=== PATIENT | male | born 1965 | race African-American/Black ===

== ENCOUNTER 2017-05-02 17:39 | Inpatient (IN) ==
--- NOTE | 2017-05-02 17:46 | Emergency Department Note ---
Disposition Clinical Impression: TIA (transient ischemic attack) Qualifiers: Transient cerebral ischemia type: unspecified Qualified Code(s): G45.9 - Transient cerebral ischemic attack, unspecified Hypertension Qualifiers: Hypertension type: essential hypertension Qualified Code(s): I10 - Essential ( primary) hypertension Disposition: Admitted As Inpatient Condition: Fair Referrals: NONE,PCP [Primary Care Provider] - Forms: ED Satisfaction Letter Time of Disposition: 18:31 Neuro HPI - General Chief Complaint: ED Neuro Symptoms/Deficit Stated Complaint: neuro Time Seen by Provider: 05/02/17 17:42 Source: patient, EMS Mode of arrival: EMS Limitations: no limitations Nursing Notes Reviewed: Yes Vital Signs Reviewed: Yes - History of Present Illness HPI Narrative: 52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 Patient also complains of some numbness and tingling in his right arm. He had some some numbness right arm. He had some daisy-oral numbness. Onset of Symptoms Date: 05/02/17 Onset of Symptoms Time: 15:15 Timing confirmed by: caregiver Location: left face, right arm, right leg Severity: mild, moderate Quality: weakness, numbness Improves with: none Worsens with: none Context: sudden onset On Anticoagulants: No Treatments Prior to Arrival: none - Related Data Allergies/Adverse Reactions: Allergies Allergy/AdvReac Type Severity Reaction Status Date / Time No Known Allergies Allergy Verified 05/02/17 17:44 All systems ED: reviewed and negative except as stated. Constitutional: Denies: fever, chills, weakness, weight change Eyes: Denies: eye pain, eye discharge, vision change ENT ED: Denies: ear pain, throat pain, dental pain, hearing loss, epistaxis, congestion, dysphagia Cardiovascular: Denies: chest pain, palpitations, dyspnea on exertion, edema, syncope Respiratory: Denies: cough, dyspnea, wheezes, hemoptysis, stridor Gastrointestinal: Denies: abdominal pain, nausea, vomiting, diarrhea, constipation, hematemesis, melena, hematochezia Genitourinary: Denies: urgency, dysuria, frequency, hematuria Musculoskeletal: Denies: back pain, neck pain, arthralgia, myalgia Integumentary: Denies: rash, abrasion, lesions Neurological: Reports: weakness (Right arm right leg), numbness (Right arm). Denies: headache, paresthesias, confusion, abnormal gait, vertigo Psychiatric: Denies: anxiety, depression, suicidal thoughts, homicidal thoughts , auditory hallucinations, visual hallucinations Endocrine: Denies: fatigue Hematological/Lymphatic: Denies: easy bleeding, easy bruising Allergic/Immunologic: Denies: facial swelling, urticaria Physical Exam - General Limitations: no limitations General appearance: alert, in no apparent distress - Head Head exam: atraumatic, normocephalic, normal inspection - Eye Eye exam: Present: normal appearance, PERRL, EOMI - ENT ENT exam: normal exam, normal oropharynx, mucous membranes moist - Neck Neck exam: Present: normal inspection, full ROM, trachea midline - Chest Chest inspection: Present: normal inspection, symmetric chest wall rise - Respiratory Respiratory exam: Present: normal lung sounds bilaterally - Cardiovascular Cardiovascular exam: Present: regular rate, normal rhythm, normal heart sounds - Abdominal Exam Abdominal exam: Present: soft, Non-Tender. Absent: tenderness, distention, guarding, rebound, rigidity - Extremities Exam Extremities exam: Present: normal inspection, full ROM. Absent: tenderness, pedal edema - Expanded Lower Extremity Exam Neurovascular/Tendon exam: Present: motor deficit (Some drift in the right arm and right leg). Absent: sensory deficit, tendon deficit Gait: not tested/not observed - Back Exam Back exam: Present: normal inspection, full ROM. Absent: tenderness - Neurological Exam Neurological exam: Present: alert, oriented X3 - Psychiatric Psychiatric exam: Present: normal affect, normal mood - Skin Skin exam: Present: warm, dry, intact, normal color Course - Reevaluation(s) Reevaluation #1: The patient's symptoms have actually improved he has decreased ataxia of the right leg is strength seems to be better and he now has no drift of the right arm. Time: 18:29 Reevaluation #2: Patient with weakness that has seems to have improved significantly a stroke alert was called patient was evaluated by [facility] at initial evaluation his NIH stroke score was 4 which improved to 0 when evaluated by [facility]. Patient will be admitted for evaluation of TIA. Time: 18:56 - Consultations Consultation #1: Discussed with , [facility] neurology stroke alert. At this time the patient does not meet criteria for TPA. Her impression is a TIA and the patient will be need to be admitted for evaluation. Time: 18:29 Consultation #2: Discussed with Mili Reeves, admit. Time: 18:57 Vital Signs Temperature 97.9 F 05/02/17 17:41 Pulse Rate 69 05/02/17 17:41 Respiratory Rate 18 05/02/17 17:41 Blood Pressure 137/110 05/02/17 17:41 O2 Sat by Pulse Oximetry 100 05/02/17 17:41 Temperature 97.9 F 05/02/17 17:41 Pulse Rate 81 05/02/17 17:57 Respiratory Rate 18 05/02/17 17:57 Blood Pressure 148/95 05/02/17 17:57 O2 Sat by Pulse Oximetry 100 05/02/17 17:41 Oxygen Delivery Oxygen Delivery Room Air Neuro Symptoms/Deficit - Lab Data Result diagrams: 05/02/17 17:47 05/02/17 17:47 Lab Results 05/02/17 05/02/17 05/02/17 Range/Units 17:47 17:47 17:47 WBC 6.3 (4.3-11.1) K/mcL RBC 6.05 H (4.19-5.50) M/mcL Hgb 16.0 (12.9-16.9) g/dL Hct 48.5 (37.5-50.1) % MCV 80.2 L (83.0-100.0) fL MCH 26.4 L (28.0-33.3) pg MCHC 33.0 (31.6-35.5) g/dL RDW 14.5 (11.5-14.5) % Plt Count 185 (140-400) K/mcL MPV 11.5 (9.4-12.4) fL Immature Gran % 0.3 (0-4) % Seg Neutrophils % 53.5 % Lymphocytes % 32.9 % Monocytes % 11.7 % Eosinophils % 1.1 % Basophils % 0.5 % Neutrophils # 3.4 (1.6-8.9) K/mcL Lymphocytes # 2.1 (0.6-4.6) K/mcL Monocytes # 0.7 (0.0-1.3) K/mcL Eosinophils # 0.1 (0.0-0.6) K/mcL Basophils # 0.0 (0.0-0.2) K/mcL PT 10.8 (9.4-12.1) Seconds INR 1.0 APTT 26.3 (26.0-36.0) Seconds Sodium 138 (136-145) mEq/L Potassium 3.8 (3.5-4.5) mEq/L Chloride 106 (98-109) mEq/L Carbon Dioxide 23 (19-29) mEq/L BUN 13 (8-26) mg/dL Creatinine 1.10 (0.72-1.25) mg/dL Est GFR ( Amer) > 60 (> 60) Est GFR (Non-Af Amer) > 60 (> 60) BUN/Creatinine Ratio 12 (6-26) Glucose 113 H (70-99) mg/dL Calculated Osmolality 287 (280-300) Calcium 9.4 (8.6-10.8) mg/dL Troponin I (0-0.03) ng/mL 05/02/17 Range/Units 17:47 WBC (4.3-11.1) K/mcL RBC (4.19-5.50) M/mcL Hgb (12.9-16.9) g/dL Hct (37.5-50.1) % MCV (83.0-100.0) fL MCH (28.0-33.3) pg MCHC (31.6-35.5) g/dL RDW (11.5-14.5) % Plt Count (140-400) K/mcL MPV (9.4-12.4) fL Immature Gran % (0-4) % Seg Neutrophils % % Lymphocytes % % Monocytes % % Eosinophils % % Basophils % % Neutrophils # (1.6-8.9) K/mcL Lymphocytes # (0.6-4.6) K/mcL Monocytes # (0.0-1.3) K/mcL Eosinophils # (0.0-0.6) K/mcL Basophils # (0.0-0.2) K/mcL PT (9.4-12.1) Seconds INR APTT (26.0-36.0) Seconds Sodium (136-145) mEq/L Potassium (3.5-4.5) mEq/L Chloride (98-109) mEq/L Carbon Dioxide (19-29) mEq/L BUN (8-26) mg/dL Creatinine (0.72-1.25) mg/dL Est GFR ( Amer) (> 60) Est GFR (Non-Af Amer) (> 60) BUN/Creatinine Ratio (6-26) Glucose (70-99) mg/dL Calculated Osmolality (280-300) Calcium (8.6-10.8) mg/dL Troponin I 0.00 (0-0.03) ng/mL - EKG Data EKG attestation: Yes I reviewed and interpreted this EKG. EKG shows normal: sinus rhythm Rate: normal Rhythm: NSR Interpretation: no acute changes NIH Stroke Scale - Level of Consciousness LOC: Alert - LOC Questions LOC Questions: Answers both correctly - LOC Commands LOC Commands: Performs both correctly - Best Gaze Best Gaze: Normal - Visual Visual: No visual loss - Facial Palsy Facial Palsy: Normal - Motor Arms Motor Arm-Left: No drift for 10 seconds Motor Arm-Right: Drift, does NOT hit bed - Motor Legs Motor Leg-Left: No drift for 5 seconds Motor Leg-Right: Drift, does NOT hit bed - Limb Ataxia Limb Ataxia: Present in ONE limb - Sensory Sensory: Mild to moderate loss, "not as sharp" - Best Language Best Language: No aphasia - Dysarthria Dysarthria: Normal - Extinction and Inattention Extinction and Inattention: Normal - NIHSS Total Score NIHSS Total Score: 4 TPA Checklist - Eligibilty for IV tPA 1. LKW equal to or less than 4.5 hours be before treatment: Yes 2. Clinical diagnosis of ischemic stroke causing deficit: No 3. Age 18 years or older: Yes - LKW: 3-4.5 hrs Add. Warnings/Precautions Patient/family understanding: The patient/family members have been counseled and understood the risk, benefit , and alternatives of treatment. Critical Care Time Critical Care Time: Yes Total Critical Care Time: 30 Attestation: The high probability of a clinically significant, sudden or life threatening deterioration of the [neurological] system(s) required my full and direct attention, intervention and personal management. The aggregate critical care time was [30] minutes. This time is in addition to time spent performing reported procedures but includes the following: [x] Data Review and interpretation [x] Patient assessment and monitoring of vital signs [x] Documentation [x] Medication orders and management
[2017-05-02 17:55] LABS: Basophils % 0.5 %; Eosinophils # 0.1 K/mcL (0.0-0.6); Eosinophils % 1.1 %; Hematocrit 48.5 % (37.5-50.1); Immature Granulocytes % 0.3 % (0-4); Lymphocytes # 2.1 K/mcL (0.6-4.6); Lymphocytes % 32.9 %; Mean Corpuscular Hemoglobin 26.4 pg (28.0-33.3); Mean Corpuscular Volume 80.2 fL (83.0-100.0); Mean Platelet Volume 11.5 fL (9.4-12.4); Monocytes # 0.7 K/mcL (0.0-1.3); Monocytes % 11.7 %; Neutrophils # 3.4 K/mcL (1.6-8.9); Platelet Count 185 K/mcL (140-400); Red Blood Count 6.05 M/mcL (4.19-5.50); Red Cell Distribution Width 14.5 % (11.5-14.5); Segmented Neutrophils % 53.5 %
[2017-05-02 18:02] LABS: Prothrombin Time 10.8 Seconds (9.4-12.1)
[2017-05-02 18:04] LABS: Activated Partial Thrombo Time 26.3 Seconds (26.0-36.0)
[2017-05-02 18:13] LABS: BUN/Creatinine Ratio 12 (6-26); Blood Urea Nitrogen 13 mg/dL (8-26); Calcium 9.4 mg/dL (8.6-10.8); Carbon Dioxide 23 mEq/L (19-29); Chloride 106 mEq/L (98-109); Glucose 113 mg/dL (70-99); Osmolality,Calculated 287 (280-300); Potassium 3.8 mEq/L (3.5-4.5); Sodium 138 mEq/L (136-145); eGFR For African Americans > 60 (> 60); eGFR For Non-African Americans > 60 (> 60)
[2017-05-02] MEDS ORDERED: Naloxone 0.4 MG/ML INJ IVP PRN (22:03)
--- NOTE | 2017-05-02 22:29 | Internal Med History&Physical ---
Date of Encounter: 05/02/17 Time of Encounter: 22:18 Assessment and Plan (1) TIA (transient ischemic attack) Current visit: Yes Status: Acute observe overnight for evolution. Neurochecks, MRI brain, US carotid doppler, TTE ordered to r/o CVA Qualifiers: Transient cerebral ischemia type: unspecified Qualified Code(s): G45.9 - Transient cerebral ischemic attack, unspecified (2) Hypertension Current visit: Yes Status: Acute probably mild un diagnosed HTN. To monitor closely for now. No medication indicated given TIA w/u Qualifiers: Hypertension type: unspecified Qualified Code(s): I10 - Essential (primary ) hypertension Internal Medicine - H&P: HPI Chief complaint: B/l UE and LE weakness , paresthesia History of present illness: Mr. Falcon is a 52 year old male with no PMH , on no medications who presents with acute B/l UE and LE weakness , paresthesia. 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 He subsequently developed b/l LE and UE weakness, could not balance or walk along with paresthesia of b/l arms and legs distribution and numbness of both sides of lips. He said he had a plum and thought he had a reaction to the plum ? He reports that his symptoms are worse on his right side than compared to left. Past Med Surg Social Fam HX - Past Medical History Medical history: hyperlipidemia Psychiatric history: no psych history - Social History Smoking Status: Never smoker Smokeless Tobacco Status: No Alcohol use: none Drug use: unknown Internal Medicine - H&P: Meds RX: No Known Home Drugs 05/02/17 [History] Allergies No Known Allergies Allergy (Verified 05/02/17 17:44) All Systems PM: A 10-system review of systems was performed and is negative for pertinent findings except as documented above in the HPI. Review of systems: ROS 14 point review of systems reviewed as best as possible given presentation. Pertinent positive or negative as per HPI or otherwise reviewed as negative - Constitutional Vitals: Temp Pulse Resp BP Pulse Ox 98.1 F 61 16 141/92 95 05/02/17 20:59 05/02/17 20:59 05/02/17 20:59 05/02/17 20:59 05/02/17 20:59 Exam: General - AAO x 3 Psych - Appropriate affect/speech. No agitation Eyes - CECELIA. Eye lids intact. No scleral icterus ENT - Oral mucosa pink, dentition intact. External ear clear/dry/intact. No thyromegaly Lymphatics - No cervical/inguinal lympadenopathy Neuro - No central neuro deficits with intact CN 2-12 exam. B/l UE and LE paresthesia. Power 5/5 UE and LE Heart - Sinus. RRR. S1 and S2 present. No added HS/murmurs appreciated. No elevated JVD appreciated. No calf swellings/erythema Lung - Adequate air entry b/l, No crackes/wheezes appreciated GI - Soft, non-tender. No hepatosplenomegaly/ascities. BS+ - No CVA/suprapubic tenderness or palpable bladder distension Skin - Intact. No rash/petechiae/ecchymosis. Warm extremities MSK - Joints with normal ROM. No joint swellings Internal Med - H&P Results - Labs CBC & Chem 7: 05/02/17 17:47 05/02/17 17:47
[2017-05-02] MEDS: 0.9 % Sodium Chloride 1,000 ML IVC SCH (23:15)
[2017-05-03] MEDS: 0.9 % Sodium Chloride 1,000 ML IVC SCH (09:19)
--- NOTE | 2017-05-03 19:58 | Internal Med Progress Note ---
Date of Encounter: 05/03/17 Time of Encounter: 18:30 - Assessment and plan (1) Paresthesias with subjective weakness Current Visit: Yes Status: Acute Assessment and plan: Unclear causation at this time. 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 He continues to endorse subjective weakness in both hands and both legs. Objectively however there are no focal neurological weakness is present on examination. Patient stating he continues to have numbness and tingling in his arms and his legs. Again, unsure causation. Echocardiogram unremarkable with ejection fraction of 60-65%. Carotid and MRI both still pending. Head CT negative. Chest x-ray negative. Patient stating he started working out approximately 2 weeks ago and states that he is taking a lot of supplements including vitamin D, B12. We will check his vitamins for any deficiencies. Awaiting MRI to rule out CVA. Patient stating he has had intermittent numbness and tingling in both arms for the past 3-4 months and he states that he started when he started his new job. He states he has a strong family history of diabetes, we will check an A1c. Will also check thyroid studies. We will bring neurology on board due to his continued symptoms. OT and PT consultations have been placed as well. Diagnosis of exclusion would include anxiety, on examination, the patient is very anxious and restless. Awaiting lab and imaging results. ITS Impressions Head CT 05/02/17 17:42 IMPRESSION: No acute intracranial abnormality. Critical test results were called by Dr. Leo Drew MD to emergency room nurse Bill Allen on 05/02/2017 at 18:04. Dr. Hernandez was unavailable at the time due to a tele-medicine consultation with [facility] neurology. D/ /02/2017 18:12:31 Leo Drew MD / sylvia Interpreting Provider: Leo Drew MD Chest X-Ray 05/02/17 17:43 IMPRESSION: No acute process. D/ / Janis Cruz MD / Janis Cruz MD Interpreting Provider: Janis Cruz MD Echo with Saline Contrast Impressions: LVEF 60-65%. Normal LV chamber size, wall thickness and function. Normal left ventricular diastolic function. Mildly dilated right ventricle with normal function. No evidence of PFO with agitated saline contrast. Mild tricuspid regurgitation. Mild pulmonic regurgitation. No pulmonary hypertension. (2) TIA (transient ischemic attack) Current Visit: Yes Status: Acute Qualifiers: Transient cerebral ischemia type: unspecified Qualified Code(s): G45.9 - Transient cerebral ischemic attack, unspecified (3) Hypertension Current Visit: Yes Status: Chronic Assessment and plan: Normotensive at this time without the use of antihypertensive medications, will trend. Qualifiers: Hypertension type: unspecified Qualified Code(s): I10 - Essential (primary ) hypertension - Subjective Interval history: Patient seen and examined. On examination, basically sitting upright in bed eating his dinner. Patient stating he dropped his fork stating that he was unable to hold it with his right hand. Patient is concerned because he continues to have numbness and tingling in both hands and in both legs. He is also reporting subjective weakness to all 4 extremities. - Constitutional Vitals: Temp Pulse Resp BP Pulse Ox 98.0 F 59 16 130/82 97 05/03/17 18:50 05/03/17 18:50 05/03/17 18:50 05/03/17 18:50 05/03/17 18:50 General appearance: Present: A&O X 3, pleasant, no acute distress, answers questions appropriately - Head Head exam: Present: atraumatic, normocephalic - Eye Eye exam: Present: PERRL, conjuntiva pink, sclera anicteric Pupils: Present: PERRL - Neck Neck exam general surgery: Present: supple, trachea midline. Absent: lymphadenopathy - Respiratory Respiratory exam: Present: CTAB. Absent: accessory muscle use, rales, respiratory distress, rhonchi, wheezes - Cardiovascular Cardiovascular exam: Present: RRR, +S1, +S2. Absent: diastolic murmur, gallop, rubs, systolic murmur - GI/Abdominal GI/Abdominal exam: Present: normal bowel sounds, soft, no peritoneal signs. Absent: distended, tenderness - Extremities Exam Extremities exam: Present: warm, radial pulses palpable and symmetrical. Absent : calf tenderness, cyanotic, pedal edema - Neurological Exam Neurological exam: Present: alert, CN II-XII intact, oriented X3, no focal deficits, strengths equal and symetr throughout. Absent: pronater drift, facial droop, speech deficit - Expanded Neurological Exam Neurological exam expanded: Present: protecting the airway Patient oriented to: Present: person, place, time Speech: Present: fluid speech Cranial Nerves: EOM's intact PM: Normal, gag reflex PM: Normal Cerebellar function: finger to nose: Normal Neuro motor strength exam: LUE: 5, RUE: 5, LLE: 4, RLE: 4 Coma Scale Eye Opening: Spontaneous Coma Scale Motor Response: Obeys Commands Coma Scale Verbal Response: Oriented Coma Scale Total: 15 - Psychiatric Psychiatric exam: Present: anxious - Expanded Psychiatric Exam Focused psych exam: Present: pressured speech, psychomotor agitation, restlessness - Skin Skin exam: Present: dry, intact, normal color, warm Internal Medicine: Result - Labs CBC & Chem 7: 05/02/17 17:47 05/02/17 17:47 - ABG Interpretation ABG results: PT/INR, D-dimer PT 10.8 Seconds (9.4-12.1) 05/02/17 17:47 Consult Discharge Plan - Plan Referrals: NONE,PCP [Primary Care Provider] -
--- NOTE | 2017-05-03 20:21 | Electrocardiograph Report ---
[place] [id number] Test Date: 2017-05-02 Pat Name: Jean Claude Falcon Department: 102 Room: 3B Gender: M Division Director: [place] : 1965 Requested By: Shira Dyer Order Number: [id number] Reading MD: Igor Goldsmith MD Measurements Intervals [place] Rate: 68 P: 41 AK: 157 QRS: 77 QRSD: 102 T: 9 QT: 392 QTc: 409 Interpretive Statements SINUS RHYTHM Electronically Signed On 05-03-2017 20:20:19 EDT by Iogr Goldsmith MD
[2017-05-03 22:32] LABS: Albumin 3.6 g/dL (3.5-5.0); Albumin/Globulin Ratio 1.1 (1.1-2.2); Bilirubin,Direct 0.3 mg/dL (0.0-0.5); Bilirubin,Indirect 0.6 mg/dL (0.0-1.2); Bilirubin,Total 0.9 mg/dL (0.2-1.2); Globulin 3.4 g/dL (2.4-3.5)
[2017-05-03 22:35] LABS: Chol/HDL Ratio 6.1 (0-4.9)
[2017-05-03 22:48] LABS: Hemoglobin A1C 5.9 %
[2017-05-03 22:52] LABS: Thyroid Stimulating Hormone 3.419 mcIU/mL (0.350-4.840)
[2017-05-03 23:10] LABS: Folate 7.6 ng/mL (7.0-31.4)
[2017-05-04] MEDS: Aspirin 81 MG TAB.CHEW PO SCH (13:44)
[2017-05-04] MEDS: amLODIPine 5 MG TABLET PO SCH (13:44)
--- NOTE | 2017-05-04 17:35 | Neurology - Consult Note ---
Date of Encounter: 05/04/17 Time of Encounter: 16:00 Assessment and Plan (1) CVA (cerebral vascular accident) Current Visit: Yes Status: Acute Patient developed lacunar infarct involving the left adams radiata likely secondary to small vessel etiology. no previous history of HTN or other risk factors, except that he is obese. Will keep him on Aspirin daily and statin therapy. Will obtain CT Angio to complete stroke work up. Patient is advised to discuss with PCP after discharge to get sleep study to check for untreated sleep apnea. PT/OT can be beneficial. Qualifiers: CVA mechanism: thrombosis Precerebral and cerebral artery: unspecified cerebral artery Qualified Code(s): I63.30 - Cerebral infarction due to thrombosis of unspecified cerebral artery History of Present Illness Chief complaint: right sided paresthesia and weakness HPI: Mr. 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 This occurred on 05/02/2017 when he was driving his truck. Initial CT of head showed no intracranial abnormality. In the ER he was evaluated by [facility] telemedicine stroke team and determined not to be a tPA candidate due to rapid improvement in his symptoms. At the time of this interview, he still has significant weakness to the right arm and leg and also numbness. MRI of brain confirmed new cerebral infarct at the left adams radiata. this deemed to be typical small vessel lacunar infarct. Patient completed carotid artery duplex study and echocardiography. Patient is started on Aspirin daily and statin therapy Past Med Surg Social Fam HX - Past Medical History Medical history: hyperlipidemia Psychiatric history: no psych history - Past Surgical History Surgical History: no surgical history - Social History Smoking Status: Never smoker Smokeless Tobacco Status: No Alcohol use: none Drug use: unknown - Family History Father Living Status: Age at : 65 Cause of : [place] Hx Family Cardiac Disorders: Yes ([place]) Hx Family Respiratory Disorders: No Hx Family Cancer: No Hx Family GI Disorders: No Hx Family Genitourinary Disorders: No Hx Family Endocrine Disorder: No Hx Family Musculoskeletal Disorders: No Hx Family Neuromuscular Disorders: No Hx Family Neurologic Disorders: No Hx Family HEENT Disorders: No Hx Family Autoimmune Disorders: No Hx Family Reproductive Disorders: No Hx Family Psychosocial Disorders: No Hx Family Medical Disorders: No Mother Living Status: Age at : 62 Cause of : [place] Hx Family Cardiac Disorders: Yes ([place], HTN) Hx Family Respiratory Disorders: No Hx Family Cancer: No Hx Family GI Disorders: No Hx Family Genitourinary Disorders: No Hx Family Endocrine Disorder: Yes (DM) Hx Family Musculoskeletal Disorders: No Hx Family Neuromuscular Disorders: No Hx Family Neurologic Disorders: No Hx Family HEENT Disorders: No Hx Family Autoimmune Disorders: No Hx Family Reproductive Disorders: No Hx Family Psychosocial Disorders: No Hx Family Medical Disorders: No Medications and Allergies No Known Home Drugs 05/02/17 [History] Allergies No Known Allergies Allergy (Verified 05/02/17 17:44) All Systems: A 10-system review of systems was performed and is negative for pertinent findings except as documented above in the HPI. Physical Examination - Vital Signs Vital Signs: Initial Vital Signs Temp Pulse Resp BP Pulse Ox 97.9 F 69 18 137/110 100 05/02/17 17:41 05/02/17 17:41 05/02/17 17:41 05/02/17 17:41 05/02/17 17:41 - Constitutional General appearance: comfortable - Neurologic Sensorimotor examination: other (right hemiparesis noted) Detailed motor examination: other (Right hemiparesis noted. ) Motor examination - right side: 4/5: deltoids, biceps, triceps, wrist flexion, wrist extension, skip tender, hip flexors, tibialis Anterior, quadriceps, toe extension (EHL), plantarflexion Motor examination - left side: 4/5: biceps, triceps, wrist flexion, wrist extension, hip flexors, skip tender, quadriceps, tibialis Anterior, toe extension (EHL) , plantarflexion Detailed sensory examination: other (Right hemiparesthesia noted) Posture: other (None) Reflexes: Biceps: 1+, Triceps: 1+, Brachioradialis: 1+, Patella: 1+, Achilles: 1 + Mental Status Examination: awake, alert, oriented to person, oriented to place, oriented to time, follows commands appropriately, answers questions appropriately, no agnosia, no aphasia, no aproxia Cranial nerve examination: PERRL, EOMI, visual [place] intact, corneal reflexes brisk symmetrically, sensory to face intact, mastication intact, no facial asymmetry is present, no dysarthria, hearing is intact symmetrically, soft palate elevates bilaterally upon phonation, gag reflex intact, flexes SCM and trapezius muscles symmetrically with full power, tongue protrudes midline, no atrophy or facial fasiculations present Results - Laboratory Findings CBC and BMP: 05/02/17 17:47 05/02/17 17:47 Abnormal lab findings: Abnormal lab results RBC 6.05 M/mcL (4.19-5.50) H 05/02/17 17:47 MCV 80.2 fL (83.0-100.0) L 05/02/17 17:47 MCH 26.4 pg (28.0-33.3) L 05/02/17 17:47 ESR 13 mm/hr (0-10) H 05/03/17 22:04 Glucose 113 mg/dL (70-99) H 05/02/17 17:47 Hemoglobin A1c 5.9 % (-5.6) H 05/03/17 22:04 Triglycerides 186 mg/dL (< 150) H 05/03/17 22:04 Cholesterol 226 mg/dL (< 200) H 05/03/17 22:04 LDL Cholesterol, Calc 152 mg/dL (0-99) H 05/03/17 22:04 VLDL Cholesterol, Calc 37 mg/dL (< 31) H 05/03/17 22:04 HDL Cholesterol 37 mg/dL (40-59) L 05/03/17 22:04 Cholesterol/HDL Ratio 6.1 (0-4.9) H 05/03/17 22:04 Consult Discharge Plan - Plan Referrals: NONE,PCP [Primary Care Provider] -
--- NOTE | 2017-05-04 18:03 | Internal Med Progress Note ---
Date of Encounter: 05/04/17 Time of Encounter: 16:15 - Assessment and plan (1) CVA (cerebral vascular accident) Current Visit: Yes Status: Acute Assessment and plan: MRI consistent with acute lacunar infarct within the left mid adams radiata. Patient continues with right-sided weakness with difficulty eating and using his right hand and difficulty ambulating with weakness to his right leg. He has very mild facial drooping on the right side, able to close his eye completely. No speech difficulty or difficulty eating. Patient appears to have undiagnosed hypertension, he has been started on amlodipine. He is also been started on aspirin and a statin. Neurology is on board to have recommended an MRA of the brain as well as an outpatient sleep study to rule out sleep apnea. OT and PT have recommended inpatient rehabilitation. The patient is amenable to this but would like to be at his home state in [place]. Social work is involved and [facility] [place] [facility]. 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 Of note, he has been instructed not to drive until cleared by his PCP. Plan is for inpatient rehabilitation in [place]- social security specialist working on placement. ITS Impressions Head CT 05/02/17 17:42 IMPRESSION: No acute intracranial abnormality. Critical test results were called by Dr. Leo Drew MD to emergency room nurse Bill Allen on 05/02/2017 at 18:04. Dr. Hernandez was unavailable at the time due to a tele-medicine consultation with [facility] neurology. D/ /02/2017 18:12:31 Leo Drew MD / sylvia Interpreting Provider: Leo Drew MD Chest X-Ray 05/02/17 17:43 IMPRESSION: No acute process. D/ / Janis Cruz MD / Janis Cruz MD Interpreting Provider: Janis Cruz MD Brain MRI 05/02/17 22:16 IMPRESSION: Acute lacunar infarct within the left mid adams radiata. The findings were sent to the Radiology Results Communication Center at 9:09 pm on 05/03/2017to be communicated to a licensed caregiver. D/ / Fuentes Perkins MD / Fuentes Perkins MD Interpreting Provider: Fuentes Perkins MD Hand X-Ray 05/03/17 00:00 IMPRESSION: No metallic foreign body in the left hand. D/ / 05/03/2017 21:09:36 Juancarlos Robin MD / pop Interpreting Provider: Juancarlos Robin MD Qualifiers: CVA mechanism: thrombosis Precerebral and cerebral artery: unspecified cerebral artery Qualified Code(s): I63.30 - Cerebral infarction due to thrombosis of unspecified cerebral artery (2) Paresthesias with subjective weakness Current Visit: Yes Status: Acute Assessment and plan: See prior note for acute CVA. Patient was concerned about diabetes as it runs in his family, A1c 5.9%. B12, folate, TSH levels are normal. Still pending are B1, vitamin D levels. Patient stated he started working out 2 weeks ago and stated he started to take a lot of supplementation. 05/03/17 Unclear causation at this time. 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 He continues to endorse subjective weakness in both hands and both legs. Objectively however there are no focal neurological weakness is present on examination. Patient stating he continues to have numbness and tingling in his arms and his legs. Again, unsure causation. Echocardiogram unremarkable with ejection fraction of 60-65%. Carotid and MRI both still pending. Head CT negative. Chest x-ray negative. Patient stating he started working out approximately 2 weeks ago and states that he is taking a lot of supplements including vitamin D, B12. We will check his vitamins for any deficiencies. Awaiting MRI to rule out CVA. Patient stating he has had intermittent numbness and tingling in both arms for the past 3-4 months and he states that he started when he started his new job. He states he has a strong family history of diabetes, we will check an A1c. Will also check thyroid studies. We will bring neurology on board due to his continued symptoms. OT and PT consultations have been placed as well. Diagnosis of exclusion would include anxiety, on examination, the patient is very anxious and restless. Awaiting lab and imaging results. ITS Impressions Head CT 05/02/17 17:42 IMPRESSION: No acute intracranial abnormality. Critical test results were called by Dr. Leo Drew MD to emergency room nurse Bill Allen on 05/02/2017 at 18:04. Dr. Hernandez was unavailable at the time due to a tele-medicine consultation with [facility] neurology. D/ /02/2017 18:12:31 Leo Drew MD / sylvia Interpreting Provider: Leo Drew MD Chest X-Ray 05/02/17 17:43 IMPRESSION: No acute process. D/ / Janis Cruz MD / Janis Cruz MD Interpreting Provider: Janis Cruz MD Echo with Saline Contrast Impressions: LVEF 60-65%. Normal LV chamber size, wall thickness and function. Normal left ventricular diastolic function. Mildly dilated right ventricle with normal function. No evidence of PFO with agitated saline contrast. Mild tricuspid regurgitation. Mild pulmonic regurgitation. No pulmonary hypertension. (3) Hypertension Current Visit: Yes Status: Chronic Assessment and plan: Still having bouts of hypertension. Started on CCB- [employer] with single agent treatment of htn. Will trend. Qualifiers: Hypertension type: unspecified Qualified Code(s): I10 - Essential (primary ) hypertension - Subjective Interval history: Patient seen and examined in concert with Neurology Dr Sandoval. On examination, patient sitting upright in bed watching television. He continues to endorse weakness to his right arm and right leg. He states he still having difficulty holding a spoon in his right hand trying to eat. He denies pain or vision changes. - Constitutional Vitals: Temp Pulse Resp BP Pulse Ox 98.0 F 53 16 139/87 98 05/04/17 16:14 05/04/17 16:14 05/04/17 16:14 05/04/17 16:14 05/04/17 16:14 General appearance: Present: A&O X 3, pleasant, no acute distress, answers questions appropriately - Head Head exam: Present: atraumatic, normocephalic - Eye Eye exam: Present: PERRL, conjuntiva pink, sclera anicteric Pupils: Present: PERRL - Neck Neck exam general surgery: Present: supple, trachea midline. Absent: lymphadenopathy - Respiratory Respiratory exam: Present: CTAB. Absent: accessory muscle use, rales, respiratory distress, rhonchi, wheezes - Cardiovascular Cardiovascular exam: Present: RRR, +S1, +S2. Absent: diastolic murmur, gallop, rubs, systolic murmur - GI/Abdominal GI/Abdominal exam: Present: normal bowel sounds, soft, no peritoneal signs. Absent: distended, tenderness - Extremities Exam Extremities exam: Present: warm, radial pulses palpable and symmetrical. Absent : calf tenderness, cyanotic, pedal edema - Neurological Exam Neurological exam: Present: alert, CN II-XII intact, oriented X3, no focal deficits, pronater drift, facial droop (very mild). Absent: normal gait, strengths equal and symetr throughout, speech deficit - Expanded Neurological Exam Neurological exam expanded: Present: protecting the airway Patient oriented to: Present: person, place, time Speech: Present: fluid speech Cranial Nerves: EOM's intact PM: Normal Neuro motor strength exam: LUE: 5, RUE: 4, LLE: 5, RLE: 4 Coma Scale Eye Opening: Spontaneous Coma Scale Motor Response: Obeys Commands Coma Scale Verbal Response: Oriented Coma Scale Total: 15 - Skin Skin exam: Present: dry, intact, normal color, warm Internal Medicine: Result - Labs CBC & Chem 7: 05/02/17 17:47 05/02/17 17:47 Labs: Liver Function 05/03/17 Range/Units 22:04 Total Bilirubin 0.9 (0.2-1.2) mg/dL Direct Bilirubin 0.3 (0.0-0.5) mg/dL AST 19 (5-34) Units/L ALT 25 (0-55) Units/L Alkaline Phosphatase 80 (38-126) Units/L Albumin 3.6 (3.5-5.0) g/dL - ABG Interpretation ABG results: PT/INR, D-dimer PT 10.8 Seconds (9.4-12.1) 05/02/17 17:47 - Impressions Impressions Brain MRI 05/02/17 22:16 IMPRESSION: Acute lacunar infarct within the left mid adams radiata. The findings were sent to the Radiology Results Communication Center at 9:09 pm on 05/03/2017to be communicated to a licensed caregiver. D/ / Fuentes Perkins MD / Fuentes Perkins MD Interpreting Provider: Fuentes Perkins MD Hand X-Ray 05/03/17 00:00 IMPRESSION: No metallic foreign body in the left hand. D/ / 05/03/2017 21:09:36 Juancarlos Robin MD / pop Interpreting Provider: Juancarlos Robin MD Consult Discharge Plan - Plan Referrals: NONE,PCP [Primary Care Provider] -
[2017-05-04] MEDS: 0.9 % Sodium Chloride 1,000 ML IVC SCH (22:17)
[2017-05-05] MEDS ORDERED: *HR* Enoxaparin 40 MG/0.4 ML SYRINGE SQ SCH (06:00)
[2017-05-05] MEDS: 0.9 % Sodium Chloride 1,000 ML IVC SCH ×2 (06:54→09:01)
[2017-05-05] MEDS: Aspirin 81 MG TAB.CHEW PO SCH (07:48)
[2017-05-05] MEDS: amLODIPine 5 MG TABLET PO SCH (07:48)
[2017-05-05 11:38] VITALS: BP 145/83
--- NOTE | 2017-05-05 12:35 | Carotid Imaging Report ---
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 Recommendations: Test completed on 05/03/2017 at 11:05:00 am. Findings Carotid Duplex: Pathak scale imaging combined with Doppler flow analysis suggests normal findings bilaterally. Right: The right proximal common carotid artery has a PSV of 88 cm/s and a EDV of 24 cm/s. The right mid common carotid artery has a PSV of 77 cm/s and a EDV of 18 cm/s. The right distal common carotid artery has a PSV of 53 cm/s and a EDV of 16 cm/s. The right bifurcation has a PSV of 49 cm/s and a EDV of 15 cm/s. The right proximal internal carotid artery has a PSV of 48 cm/s and a EDV of 18 cm/s. The right mid internal carotid artery has a PSV of 81 cm/s and a EDV of 35 cm/s. The right distal internal carotid artery has a PSV of 56 cm/s and a EDV of 22 cm/s. The right eca has a PSV of 92 cm/s and a EDV of 22 cm/s. The right vertebral artery has a PSV of 42 cm/s and a EDV of 11 cm/s. Left: The left proximal common carotid artery has a PSV of 166 cm/s and a EDV of 15 cm/s. The left mid common carotid artery has a PSV of 72 cm/s and a EDV of 15 cm/s. The left distal common carotid artery has a PSV of 45 cm/s and a EDV of 11 cm/s. The left bifurcation has a PSV of 46 cm/s and a EDV of 14 cm/s. The left proximal internal carotid artery has a PSV of 30 cm/s and a EDV of 9 cm/s. The left mid internal carotid artery has a PSV of 66 cm/s and a EDV of 30 cm/s. The left distal internal carotid artery has a PSV of 65 cm/s and a EDV of 27 cm/s. The left eca has a PSV of 71 cm/s and a EDV of 15 cm/s. The left vertebral artery has a PSV of 46 cm/s and a EDV of 20 cm/s. Prior Study: No prior study available for comparison. Carotid Results Right PSV EDV Assessment Proximal CCA 88 24 Normal Mid CCA 77 18 Normal Distal CCA 53 16 Normal Bifurcation 49 15 Normal Proximal ICA 48 18 Normal Mid ICA 81 35 Normal Distal ICA 56 22 Normal ECA 92 22 Normal Vertebral Artery 42 11 Normal Left PSV EDV Assessment Proximal CCA 166 15 Normal Mid CCA 72 15 Normal Distal CCA 45 11 Normal Bifurcation 46 14 Normal Proximal ICA 30 9 Normal Mid ICA 66 30 Normal Distal ICA 65 27 Normal ECA 71 15 Normal Vertebral Artery 46 20 Normal Ratio's Right ICA/CCA Ratio: 1.05 ICA/CCA Values: 81/77 Left ICA/CCA Ratio: 0.92 ICA/CCA Values: 66/72 Updated by Mark Lee MD, FACS on 05/05/2017 12:27:47 PM Mark Lee MD electronically signed on 05/05/2017 12:28:02 PM with status of Final
--- NOTE | 2017-05-05 15:07 | Neurology Progress Note ---
Date of Encounter: 05/05/17 Time of Encounter: 15:04 Assessment and Plan (1) CVA (cerebral vascular accident) Current Visit: Yes Status: Acute Continue aspirin daily, plus statin therapy and HTN treatment. permissive HTN during acute phase (7-10 day). patient await for PT/OT. Presence of extension of lacunar infarct into left lenticulate nucleus, can happen with patients with acute lacunar infarct. this would not change the treatment plan. Continue medical and supportive care. Will sign off at this time. Please call if any questions Qualifiers: CVA mechanism: thrombosis Precerebral and cerebral artery: unspecified cerebral artery Qualified Code(s): I63.30 - Cerebral infarction due to thrombosis of unspecified cerebral artery Subjective Principal diagnosis: CVA Interval history: Patient seen and examined. Patient feels that the weakness and numbness to the right side, not getting better and probably a little worse but no significant changes in his clinical symptoms. CTA of brain showed mild M1 left side stenosis and extension of focal infarct into the left lenticulate nuclear, which at times occur in patients with acute lacunar infarct. Objective - Constitutional Vitals: Temp Pulse Resp BP Pulse Ox 98.0 F 54 16 145/83 98 05/05/17 11:37 05/05/17 11:37 05/05/17 11:37 05/05/17 11:37 05/05/17 11:37 - Neurological Exam Sensorimotor examination: Present: other (right hemiparesis noted) Motor Examination: Present: other (Right hemiparesis noted. ) Motor examination - left side: 4/5: deltoids, biceps, triceps, wrist flexion, wrist extension, hip flexors, sow farm manager, quadriceps, tibialis Anterior, toe extension (EHL), plantarflexion Sensation intact: Present: other (Right hemiparesthesia noted) Posture: Present: other (None) Mental Status Examination: Present: awake, alert, oriented to person, oriented to place, oriented to time, follows commands appropriately, answers questions appropriately, no agnosia, no aphasia, no aproxia Cranial nerve examination: Present: PERRL, EOMI, visual [place] intact, corneal reflexes brisk symmetrically, sensory to face intact, mastication intact, no facial asymmetry is present, no dysarthria, hearing is intact symmetrically, soft palate elevates bilaterally upon phonation, gag reflex intact, flexes SCM and trapezius muscles symmetrically with full power, tongue protrudes midline, no atrophy or facial fasiculations present Results - Laboratory Findings CBC and BMP: 05/02/17 17:47 05/02/17 17:47 Abnormal lab findings: Abnormal lab results RBC 6.05 M/mcL (4.19-5.50) H 05/02/17 17:47 MCV 80.2 fL (83.0-100.0) L 05/02/17 17:47 MCH 26.4 pg (28.0-33.3) L 05/02/17 17:47 ESR 13 mm/hr (0-10) H 05/03/17 22:04 Glucose 113 mg/dL (70-99) H 05/02/17 17:47 Hemoglobin A1c 5.9 % (-5.6) H 05/03/17 22:04 Triglycerides 186 mg/dL (< 150) H 05/03/17 22:04 Cholesterol 226 mg/dL (< 200) H 05/03/17 22:04 LDL Cholesterol, Calc 152 mg/dL (0-99) H 05/03/17 22:04 VLDL Cholesterol, Calc 37 mg/dL (< 31) H 05/03/17 22:04 HDL Cholesterol 37 mg/dL (40-59) L 05/03/17 22:04 Cholesterol/HDL Ratio 6.1 (0-4.9) H 05/03/17 22:04 Consult Discharge Plan - Plan Referrals: NONE,PCP [Primary Care Provider] -
--- NOTE | 2017-05-05 15:28 | Discharge Summary ---
Date of Encounter: 05/05/17 Time of Encounter: 15:15 - Discharge Diagnosis (1) CVA (cerebral vascular accident) Priority: Primary Status: Acute Comments: MRI consistent with acute lacunar infarct within the left mid adams radiata. Patient was admitted and observed over the course of 3 nights. His symptoms continued to be fall and he began to experience worsened right-sided weakness with what he felt was slurring his speech. No dysphagia or sores present on objective examination. Very mild facial droop, able to close his eye fully. This is expected as a natural progression area to symptoms have stabilized. Sending inpatient rehabilitation. Qualifiers: CVA mechanism: thrombosis Precerebral and cerebral artery: unspecified cerebral artery Qualified Code(s): I63.30 - Cerebral infarction due to thrombosis of unspecified cerebral artery (2) Paresthesias with subjective weakness Priority: Primary Status: Acute (3) Hypertension Priority: Secondary Status: Chronic Comments: Still having bouts of hypertension but recommend permissive hypertension for the next 7-10 days. Started on low dose CCB- best for americans with single agent treatment of htn. - Discharge Medications Prescriptions: amLODIPine [Norvasc] 5 mg PO DAILY #30 tab Aspirin 81 mg PO DAILY #30 Atorvastatin [Lipitor] 20 mg PO HS #60 tab Home Medications: Aspirin 81 mg PO DAILY #30 05/05/17 [Rx] Atorvastatin [Lipitor] 20 mg PO HS #60 tab 05/05/17 [Rx] amLODIPine [Norvasc] 5 mg PO DAILY #30 tab 05/05/17 [Rx] Allergies/Adverse Reactions: Allergies No Known Allergies Allergy (Verified 05/02/17 17:44) Procedures/tests Complete & Pending: Procedures Performed prior 72 hours Category Date Time Status CTA Head wo/w contrast [CT angio head wo/w con] [CT] Cat Scan 05/04/17 19:00 Completed Routine Date of admission: 05/04/17 18:05 Primary care physician: PCP NONE Consults: 05/03/17 11:38 Consult to Propulsion Motor And Generator Repairer [CONS] Routine Reason for SW Consult: CVA R/O, [place] 05/03/17 19:52 Consult to Neurology [CONS] Routine Consulting Provider: Neurology [facility] Reason for Consult: continued paresthesias. mri pending Call Completed: Yes Consult to Occupational Therapy [CONS] Routine Comment: Evaluate, develop and implement POC Reason for Consult: paresthesias in arms and legs; dropped silverware Consult to Physical Therapy [CONS] Routine Comment: Evaluate, develop and implement POC Reason for Consult: paresthesias in arms and legs; dropped silverware Discharging clinician: Shira Dyer Anticipated date of discharge: 05/05/17 (sending to [facility] inpatient rehab) - Patient Status Disposition: Transfer Inpatient Rehab Fac Condition: Fair Functional capacity at discharge: uses cane/walker Overall status at discharge: patient is not back to baseline - Discharge Instructions Follow Up With: NONE,PCP [Primary Care Provider] - Additional Instructions: Transferring to the [facility] for inpatient rehabilitation. No driving until cleared per primary care provider. - Diet and Activity Activity: as per physical therapy, increase activity as tolerated Diet: low fat, low cholesterol, low salt diet Hospital course: Mr. Falcon is a 52 year old male with no past medical history other than hyperlipidemia. Patient presented to the emergency department chief complaint of acute onset of bilateral upper extremity and lower extremity weakness associated with paresthesias. 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 He pulled over at a rest stop. He then subsequently developed bilateral lower extremity and approximately weakness and he could not balance or walk. Paresthesias were on both arms, both legs, and both sides of his lips. Patient stating he had a plum and thought that he could have been having a reaction to it. He states that the symptoms were worse on his right side when compared to the left side. Workup in the emergency department unremarkable. Head CT negative. Chest x-ray negative. Patient was admitted to the hospitalist service for further evaluation and management. Initially, patient continue with paresthesias and as his admission continued, he developed worsened right-sided weakness as well as mild right-sided facial droop. Brain MRI revealing acute lacunar infarct within the left mid adams radiata. He was seen and evaluated by occupational and physical therapy both of whom recommended inpatient rehabilitation. During this admission, he had difficulty using utensils with his right hand. He also had difficulty with ambulation. Regarding risk factor stratification, patient is aware that he had mildly elevated cholesterol levels but he was not on medications. He was started on a statin. He was also started on a baby aspirin. Also suspect the patient could have had uncontrolled hypertension. He was hypertensive at times during this admission. He was started on low-dose calcium channel kirit (which is the optimal medication for single agent treatment of -Americans). His blood pressure was improved after starting this medication however he remained borderline hypotensive but recommendation is for permissive hypertension the first 7-10 days after an acute infarct per neurology recommendations. Diabetes was ruled out with an A1c of 5.9%. B12, folate, TSH levels were also normal. He had no dysphagia or difficulty speaking. 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 The treatment was unchanged after this CTA. Echocardiogram unremarkable with an ejection fraction of 60-65% with mild TR, mild GA. Carotid duplex negative. Neurology also recommended outpatient sleep study to rule out sleep apnea. Of note, initial plan was to transfer the patient did not back home to [place] so he could attend inpatient rehabilitation. [facility] the responsibility of transferring him to [place] at their discretion. Patient has been instructed not to drive until told otherwise by his primary care provider. [facility] with close outpatient follow-up recommended. ITS Impressions Head CT 05/02/17 17:42 IMPRESSION: No acute intracranial abnormality. Critical test results were called by Dr. Leo Drew MD to emergency room nurse Bill Allen on 05/02/2017 at 18:04. Dr. Hernandez was unavailable at the time due to a tele-medicine consultation with [facility] neurology. D/ /02/2017 18:12:31 Leo Drew MD / sylvia Interpreting Provider: Leo Drew MD Chest X-Ray 05/02/17 17:43 IMPRESSION: No acute process. D/ / Janis Cruz MD / Janis Cruz MD Interpreting Provider: Janis Cruz MD Brain MRI 05/02/17 22:16 IMPRESSION: Acute lacunar infarct within the left mid adams radiata. The findings were sent to the Radiology Results Communication Center at 9:09 pm on 05/03/2017to be communicated to a licensed caregiver. D/ / Fuentes Perkins MD / Fuentes Perkins MD Interpreting Provider: Fuentes Perkins MD Hand X-Ray 05/03/17 00:00 IMPRESSION: No metallic foreign body in the left hand. D/ / 05/03/2017 21:09:36 Juancarlos Robin MD / pop Interpreting Provider: Juancarlos Robin MD Hand X-Ray 05/03/17 00:00 IMPRESSION: No metallic foreign body in the left hand. D/ / 05/03/2017 21:09:36 Juancarlos Robin MD / pop Interpreting Provider: Juancarlos Robin MD Angiography CT 05/04/17 19:00 IMPRESSION: 1. Acute lacunar infarct within the left mid adams radiata extending into the ipsilateral lentiform nucleus. 2. Mild tandem stenoses of the left MCA. D/ / Fuentes Perkins MD / Fuentes Perkins MD Interpreting Provider: Fuentes Perkins MD Echo with Saline Contrast Impressions: LVEF 60-65%. Normal LV chamber size, wall thickness and function. Normal left ventricular diastolic function. Mildly dilated right ventricle with normal function. No evidence of PFO with agitated saline contrast. Mild tricuspid regurgitation. Mild pulmonic regurgitation. No pulmonary hypertension. Carotid Duplex Patient Name: Jean Claude Falcon Procedure Date: 05/03/2017 Impressions: Findings: Bilateral carotid systems essentially normal. - Time Spent with Patient Total time spent providing and/or coordinating discharge services: - Constitutional Vitals: Temp Pulse Resp BP Pulse Ox 98.0 F 54 16 145/83 98 05/05/17 11:37 05/05/17 11:37 05/05/17 11:37 05/05/17 11:37 05/05/17 11:37 General appearance: Present: A&O X 3, pleasant, no acute distress, answers questions appropriately - Head Head exam: Present: atraumatic, normocephalic - Eye Eye exam: Present: PERRL, conjuntiva pink, sclera anicteric Pupils: Present: PERRL - Neck Neck exam general surgery: Present: supple, trachea midline. Absent: lymphadenopathy - Respiratory Respiratory exam: Present: CTAB. Absent: accessory muscle use, rales, respiratory distress, rhonchi, wheezes - Cardiovascular Cardiovascular exam: Present: RRR, +S1, +S2. Absent: diastolic murmur, gallop, rubs, systolic murmur - GI/Abdominal GI/Abdominal exam: Present: normal bowel sounds, soft, no peritoneal signs. Absent: distended, tenderness - Extremities Exam Extremities exam: Present: warm, radial pulses palpable and symmetrical. Absent : calf tenderness, cyanotic, pedal edema - Neurological Exam Neurological exam: Present: alert, CN II-XII intact, oriented X3, no focal deficits, facial droop (mild; able to close eye and eat). Absent: normal gait, strengths equal and symetr throughout, pronater drift, speech deficit - Expanded Neurological Exam Neurological exam expanded: Present: protecting the airway Patient oriented to: Present: person, place, time Speech: Present: fluid speech Cranial Nerves: EOM's intact PM: Normal Neuro motor strength exam: LUE: 5, RUE: 4, LLE: 5, RLE: 4 Coma Scale Eye Opening: Spontaneous Coma Scale Motor Response: Obeys Commands Coma Scale Verbal Response: Oriented Coma Scale Total: 15 - Skin Skin exam: Present: dry, intact, normal color, warm
--- NOTE | 2017-05-05 15:41 | Physician Discharge Referral ---
ExtendedCare Referral Info Transfer To: [facility] Provider in Charge: Yovanny Dyer CNP Provider in Charge after Transfer: PCP Institutional Level of Care: Skilled - Diagnosis (1) CVA (cerebral vascular accident) Priority: Primary Status: Acute (2) Paresthesias with subjective weakness Priority: Primary Status: Acute (3) Hypertension Priority: Secondary Status: Chronic Prognosis: Good Aware of Diagnosis: Patient Aware of Prognosis: Patient - Transfer Medications Prescriptions: amLODIPine [Norvasc] 5 mg PO DAILY #30 tab Aspirin 81 mg PO DAILY #30 Atorvastatin [Lipitor] 20 mg PO HS #60 tab Home Medications: Aspirin 81 mg PO DAILY #30 05/05/17 [Rx] Atorvastatin [Lipitor] 20 mg PO HS #60 tab 05/05/17 [Rx] amLODIPine [Norvasc] 5 mg PO DAILY #30 tab 05/05/17 [Rx] Allergies/Adverse Reactions: Allergies No Known Allergies Allergy (Verified 05/02/17 17:44) - Respiratory Orders Smoking Cessation: Smoking cessation has been advised. For more information, call the [email or web address] Tobacco Quit Line at 4-756-NFWB-NOW. - Ancillary Orders May use pressure relief devices daily prn, May go on TONI w/family/respon green party w /meds at nurse discretion PRN, May have alcoholic beverages, May consult with Dentist, Horse And Wagon Driver, Stamps Or Coins Salesperson PRN - Advance Directives Living Will: No Power of News Clerk: No Code Status: Full Code - Mobility Orders Ambulate - Rehabiliation Orders Rehab Potential: Good Rehab Orders: ROM Exercises, Evaluation for Physical Therapy, Evaluation for Occupational Therapy, Evaluation for Speech Therapy - Treatments Skin tear care topically daily PRN per policy, May check for fecal impaction rectally daily PRN, Fleet enema rectally every other day PRN cleansing purposes CERTIFICATION: I certify that the transfer of the above named patient to an Extended Care Facility is necessary for the continuing treatment of the diagnosis listed. The above information is true and accurate reflection of patient's current condition. Confidential - Redisclosure prohibited without a patient's written consent.
[2017-05-06 07:25] LABS: ANA IgG by ELISA NONE DETECTED (None Detected)
[2017-05-08 07:32] LABS: Vitamin B1 (Thiamine) Whole Bl 89 nmol/L (70-180)
== END 2017-05-05 16:26 | DRG 65 ==
LOC: EDBD → 3BNU 17:39 → EMEROO 17:39 → 3BNU 20:37
PROVIDERS: ADMIT Nurse Practitioner Family; ATTEND Nurse Practitioner Family